=== PATIENT | female | born 1990 | race Caucasian/White ===

== ENCOUNTER 2016-11-21 10:02 | Emergency (ER) | payer OTHER, MEDICAID ==
[~2016-11-21] VITALS: Ht 167.6 cm; Wt 84.1 kg
[2016-11-21 10:06] VITALS: PULSE 74; TEMP 98.2
[2016-11-21] MEDS ORDERED: SEROQUEL 2525 MG/TAB PO (10:09)
[2016-11-21] MEDS ORDERED: ATARAX50 MG PO (10:09)
[2016-11-21] MEDS ORDERED: PROZAC 20MG20 MG PO (10:10)
[2016-11-21] MEDS ORDERED: SEPTRA DS 8001 TAB (11:13)
[2016-11-21 11:33] LABS: PH 5 (5-8); SQUAMOUS EPITHELIAL 0-2 /hpf; URINE APPEARANCE Clear; URINE BACTERIA None Seen /hpf; URINE BILIRUBIN Negative (NEGATIVE); URINE BLOOD Negative (NEGATIVE); URINE COLOR Yellow; URINE GLUCOSE Negative (NEGATIVE); URINE KETONE Negative (NEGATIVE); URINE RBC 0-2 /hpf; URINE UROBILINOGEN Negative (NEGATIVE); URINE WBC 0-2 /hpf
[2016-11-21 11:46] VITALS: BP 119/78
== END 2016-11-21 11:48 | disposition home or self-care (01) ==
LOC: COL.ER 10:02
PROVIDERS: Emergency Medicine
DX: N93.9 Abnormal uterine and vaginal bleeding, unspecified (principal); Z97.5 Presence of (intrauterine) contraceptive device; N39.0 Urinary tract infection, site not specified